=== PATIENT | male | born 1950 | race Native Hawaiian/Other Pacific Islander ===

== ENCOUNTER 2017-09-03 08:27 | Day surgery (SDC) | payer MEDICARE, OTHER ==
[2017-09-02 09:46] VITALS: BMI 34.4
[~2017-09-03 08:27] MED LIST: LACTATED RINGERS 1,000 ML IV SCH; LIDOCAINE 1% 20 ML VIAL (10MG/ML) FOR IV START INTRADERMA PRN
[2017-09-03 08:53] VITALS: RESP 16; TEMP 97.7
[2017-09-03] MEDS ORDERED: LIDOCAINE 1% 20 ML VIAL (10MG/ML) FOR IV START INTRADERMA ONE (09:04)
[2017-09-03] MEDS ORDERED: PROPOFOL 10 MG/ML 20 ML VIAL IV ONE (10:07)
--- NOTE | 2017-09-03 10:14 | P.GSHP ---
History of Present Illness H&P Date: 09/03/17 Chief Complaint: GI bleed This a 66-year-old male referred from Dr. Carine Thompson. Patient presents today for colonoscopy. He's had issues with GI bleed. 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 COLONOSCOPY/EGD Past Anesthesia/Blood Transfusion Reactions: Previous Problems w/ Anesthesia Additional Past Anesthesia/Blood Transfusion Reaction / Comment(s): WOKE UP DURING EGD Smoking Status: Current every day smoker - Past Family History Sister(s) Family Medical History: CVA/TIA Brother(s) Family Medical History: CVA/TIA Medications and Allergies Home Medications Medication Instructions Recorded Confirmed Type Atorvastatin [Lipitor] 10 mg PO DAILY 09/02/17 09/03/17 History Cetirizine HCl 10 mg PO DAILY 09/02/17 09/03/17 History Ciprofloxacin HCl [Cipro] 500 mg PO BID 09/02/17 09/03/17 History Clopidogrel [Plavix] 75 mg PO DAILY 09/02/17 09/03/17 History Ergocalciferol (Vitamin D2) 50,000 unit PO SARGENT 09/02/17 09/03/17 History [Vitamin D2] Furosemide [Lasix] 20 mg PO DAILY 09/02/17 09/03/17 History Ibuprofen [Advil] 200 mg PO DAILY 09/02/17 09/03/17 History Lisinopril [Zestril] 20 mg PO BID 09/02/17 09/03/17 History Omeprazole 20 mg PO DAILY 09/02/17 09/03/17 History Ondansetron [Zofran ODT] 8 mg PO DAILY 09/02/17 09/03/17 History Potassium Chloride [K-Tab ER] 10 meq PO DAILY 09/02/17 09/03/17 History Spironolactone 50 mg PO DAILY 09/02/17 09/03/17 History metroNIDAZOLE [Flagyl] 500 mg PO DAILY 09/02/17 09/03/17 History Allergies Allergy/AdvReac Type Severity Reaction Status Date / Time procaine [From Novocain] Allergy DIZZY AND Verified 09/02/17 09:31 PASSED OUT Surgical - Exam Vital Signs Temp Pulse Resp BP Pulse Ox 97.7 F 110 H 16 108/74 94 L 09/03/17 08:42 09/03/17 08:42 09/03/17 08:42 09/03/17 08:42 09/03/17 08:42 - General well developed, no distress - Eyes PERRL - ENT normal pinna, no hearing loss - Neck no masses - Respiratory normal expansion - Cardiovascular Rhythm: regular - Abdomen Abdomen: soft, non tender Assessment and Plan Assessment: GI bleed. We'll perform colonoscopy.
--- NOTE | 2017-09-03 10:24 | P.OP ---
Date of Procedure: 09/03/17 Preoperative Diagnosis: GI bleed Postoperative Diagnosis: Diverticulosis Procedure(s) Performed: Colonoscopy Anesthesia: MAC Surgeon: Ace Steen Pathology: none sent Condition: stable Disposition: PACU Description of Procedure: The patient's placed on the endoscopy table in the lateral position. He received IV sedation. Digital rectal exam was performed which revealed a few external hemorrhoids. Flexible colonoscope was then placed patient anus passed throughout the entire colon. The ileocecal valve was visualized. The cecum, ascending and transverse colon appeared normal. In the descending and; there is mild diverticulosis. The scope was then brought back the rectum and this appeared normal. Scope was withdrawn for patient.
[2017-09-03 11:16] VITALS: BP 106/70; PULSE 92
--- NOTE | 2017-09-06 07:56 | CDI ---
Date: 09/06/17 CDS/Entry Level Sales Consultant Name: Zarina Thomason Phone: If any questions, call Chanda Juan Bar[employer] Lathe Operator at [phone] Patient Name: Carlos Amezquita Admit Date: 09/03/17 Discharge Date: 09/03/17 ATTENTION: The [facility] Coding Staff appreciate your assistance in clarifying documentation. Please respond to the clarification below the line at the bottom and electronically sign. The [facility] Coding staff will review the response and follow-up if needed. Please note: Queries are made part of the Legal Health Record. If you have any questions, please contact the Barrel Lathe Operator. Dear Dr. Steen Please provide clarification on the reason for GI Bleed. Please clarify if the GI bleed was the cause of one of the findings for the procedure performed. Thank you for your kind consideration. Unable to determine MTDD
== END 2017-09-03 11:05 | disposition home or self-care (01) ==
LOC: ORWHC2ENDO 08:27
PROVIDERS: ATTEND Surgery
DX: K57.30 Diverticulosis of large intestine without perforation or abscess without bleeding (principal); K64.4 Residual hemorrhoidal skin tags; K92.2 Gastrointestinal hemorrhage, unspecified; K21.9 Gastro-esophageal reflux disease without esophagitis; E78.5 Hyperlipidemia, unspecified; I10 Essential (primary) hypertension; Z86.73 Personal history of transient ischemic attack (TIA), and cerebral infarction without residual deficits; F17.200 Nicotine dependence, unspecified, uncomplicated; Z79.2 Long term (current) use of antibiotics; Z79.02 Long term (current) use of antithrombotics/antiplatelets; Z79.1 Long term (current) use of non-steroidal anti-inflammatories (NSAID); Z79.899 Other long term (current) drug therapy; Z88.4 Allergy status to anesthetic agent
CPT/HCPCS: 45378; J2704